=== PATIENT | female | born 1995 | race Caucasian/White ===

== ENCOUNTER 2025-02-04 15:20 | Outpatient (OUT) | payer OTHER, SELFPAY ==
--- OUTSIDE RECORDS SUMMARY | 2023-08-16 03:45 | XMS_ITS ---
Author Organization [facility] vices Address [address] [facility] [address] Care Team Providers Care Concrete Laborer Name Role Phone Yoana Berry Unavailable [phone] Daisy Keller Unavailable [phone] REASON FOR VISIT HEP B #3 Social History Sex Assigned At : Social History Observation Description Sex Assigned At Female Encounters Encounter Location Date Provider Diagnosis Main [address] [place] [id number] 08/16/2023 Daisy Keller Plan Of Treatment No Information Progress Notes * Judith REEDERDOB:1995 (29 yo F)Acc No.[id number]:08/16/2023 Nurse Visit Note Patient: Judith Buchanan :?Daisy Keller MDDOB:1995???Age:27 Y???Sex: FemaleDate:4Phone:[phone]:[address] [facility], [place] Subjective: * Chief Complaints: * H EP B #3 * Electronic signature of Daisy Keller MD on 02/04/2025 at 03:29 PM ESTSign off status: Pending * Provider: Carmen Keller MD Date: 0 08/16/2023 Generated for Printing/Faxing/eTransmitting on:?02/04/2025 03:29 PM EST
--- OUTSIDE RECORDS SUMMARY | 2023-08-16 03:45 | XMS_ITS ---
Author Organization [facility] vices Address [address], [place] [address] Care Team Providers Care Outside Sales Representative Name Role Phone Yoana Berry Unavailable [phone] Daisy Keller Unavailable [phone] REASON FOR VISIT anxiety, wt loss and #3 HEP B Medications Medication SIG (Take, Route, Frequency, Duration) Notes Start Date End Date Status hydrOXYzine Pamoate 25 MG Capsule 1 caps ule if needed Orally twice a day; Duration: 15 days 07/24/2023ctivebusPIRone HCl 5 MG Tablet 1 tablet Orally Twice a day; Duration: 30 days Take upon awakening and at 5-6 PM 03/15/2023Not-Taking/PRNLexapro 5 MG Tablet1 tablet Orally Once a day; Duration: 30 day(s)08/09/2023ctiveBlood Pressure Kit - Kitas directed; Duration: 90 days 11/06/2022Not-Taking/PRNIron 325 (65 Fe) MG Tablet1 tablet Orally once a day; Duration: 30 days02/01/2023Not-Taking/PRNARIPiprazole 5 MG Tablet1 tablet Orally bed time; Duration: 30 days03/15/2023Not-Taking/PRN Immunizations Vaccine Route Administration Date Status Comme nts *Hep B, adult dosage-Private Unknown 08/16/2023 Pending Social History Sex Assigned At : Social History Observation Description Sex Assigned At Female Encounters Encounter Location Date Provider Diagnosis Main [address] [place] [id number] 08/16/2023 Daisy Keller Encounter for immuni zation Z23 Assessments Encounter Date Diagnosis (ICD Code) Assessment Notes Treatment Notes Treatment Clinical Notes Section Notes 08/16/2023 Encounter for immunization (ICD- 10 - Z23) Hep B #3 today. Plan Of Treatment Treatment Notes Assessment Notes Encounter for immunization Hep B #3 toda y. Progress Notes * Judith REEDERDOB:1995 (29 yo F)Acc No.[id number]:08/16/2023 Medical Note Patient: Judith Buchanan :?Daisy Keller MDDOB:1995???Age:27 Y???Sex: FemaleDate:08/16/2023hone:[phone]:[address] [facility] Subjective: * Chief Complaints: * a nxiety, wt loss and #3 HEP B * Medications: T akinghydrOXYzine Pamoate 25 MG Capsule 1 capsule if needed Orally twice a day Lexapro 5 MG Tablet 1 tablet Orally Once a day Taking hydrOXYzine Pamoate 25 MG Capsule 1 capsule if needed Orally twice a day Taking Lexapro 5 MG Tablet 1 tablet Orally Once a day Not-Taking/PRNARIPiprazole 5 MG Tablet 1 tablet Orally bed time busPIRone HCl 5 MG Tablet 1 tablet Orally Twice a day Take upon awakening and at 5-6 PMIron 325 (65 Fe) MG Tablet 1 tablet Orally once a day Blood Pressure Kit - Kit as directed Not-Taking/PRN ARIPiprazole 5 MG Tablet 1 tablet Orally bed time Not-Taking/PRN busPIRone HCl 5 MG Tablet 1 tablet Orally Twice a day Take upon awakening and at 5-6 PMNot-Taking/PRN Iron 325 (65 Fe) MG Tablet 1 tablet Orally once a day Not- Taking/PRN Blood Pressure Kit - Kit as directed Assessment: * Assessment: 1.?Encounter for immunization - Z23??? Plan: * Treatment: Notes: Hep B #3 today.?? * Immunizations: *Hep B, adult dosage-Private : 1 mL (Pending) (Encounter for immunization) Billing Information: * Procedure Codes: * Electronic signature of Daisy Keller MD on 02/04/2025 at 03:29 PM ESTSign off status: Pending * Provider: Carmen Keller MD Date: 0 08/16/2023 Generated for Printing/Faxing/eTransmitting on:?02/04/2025 03:29 PM EST
--- OUTSIDE RECORDS SUMMARY | 2023-12-20 06:00 | XMS_ITS ---
Author Organization [facility] vices Address [address] [place], [place] [address] Care Team Providers Care Vegetable I Farmworker Name Role Phone Yoana Berry Unavailable [phone] Ann Escobar Unavailable [phone] REASON FOR VISIT Thyroid Check, Nausea Social History Sex Assigned At : Social History Observation Description Sex Assigned At Female Encounters Encounter Location Date Provider Diagnosis Main [address] [place], [place] [id number] 12/20/2023 Ann Escobar Plan Of Treatment No Information Progress Notes * Judith REEDERDOB:1995 (29 yo F)Acc No.[id number]:12/20/2023 Medical Note Patient: Judith Buchanan :?Ann EscobarDOB:1995???Age:28 Y???Sex:Female Date:12/20/2023hone:[phone]:[address] [place], [place] Subjective: * Chief Complaints: * T hyroid Check, Nausea * Electronic signature of LEESA Rutledge on 02/04/2025 at 01:46 PM ESTSign off status: Pending * Provider: Samantha Escobar Date: Generated for Printing/Faxing/eTransmitting on:?02/04/2025 01:46 PM EST
--- OUTSIDE RECORDS SUMMARY | 2023-12-24 13:15 | XMS_ITS ---
Author Organization [facility] vices Address [address] [place], [place] [address] Care Team Providers Care Registered Physical Therapist Name Role Phone Yoana Berry Unavailable [phone] Ann Escobar Unavailable [phone] REASON FOR VISIT F/U Knot on Arm Social History Sex Assigned At : Social History Observation Description Sex Assigned At Female Encounters Encounter Location Date Provider Diagnosis [address] [id number] 12/23 Ann Escobar Plan Of Treatment No Information Progress Notes * Judith REEDERDOB:1995 (29 yo F)Acc No.[id number]:12/24/2023 Medical Note Patient: La lara Judith :?Ann EscobarDOB:1995???Age:28 Y???Sex:Female Date:12/24/2023hone:[phone]:[address] [place], [place] Subjective: * Chief Complaints: * F /U Knot on Arm Billing Information: * Procedure Codes: * Electronic signature of LEESA Rutledge on 02/04/2025 at 01:46 PM ESTSign off status: Pending * Provider: Samantha Escobar Date: 02/22/2023 Generated for Printing/Faxing/eTransmitting on:?02/04/2025 01:46 PM EST
--- OUTSIDE RECORDS SUMMARY | 2024-01-25 05:00 | XMS_ITS ---
Author Organization [facility] vices Address [address] [place], [place] [address] Care Team Providers Care Cosmetic Consultant Name Role Phone Yoana Berry Unavailable [phone] Ann Escobar Unavailable [phone] REASON FOR VISIT Thyroid Social History Sex Assigned At : Social History Observation Description Sex Assigned At Female Encounters Encounter Location Date Provider Diagnosis [address] [id number] 01/24 Ann Escobar Plan Of Treatment No Information Progress Notes * Judith REEDERDOB:1995 (29 yo F)Acc No.[id number]:01/25/2024 Medical Note Patient: Judith Buchanan :?Ann EscobarDOB:1995???Age:28 Y???Sex:Female Date:4Phone:[phone]:[address] [place], [place] Subjective: * Chief Complaints: * T hyroid Billing Information: * Procedure Codes: * Electronic signature of LEESA Rutledge on 02/04/2025 at 01:46 PM ESTSign off status: Pending * Provider: Samantha Escobar Date: 03/27/2023 Generated for Printing/Faxing/eTransmitting on:?02/04/2025 01:46 PM EST
--- OUTSIDE RECORDS SUMMARY | 2024-04-16 09:00 | XMS_ITS ---
Author Organization [facility] vices Address [address] [place], [place] [address] Care Team Providers Care Paint Roller Cover Machine Setter Name Role Phone Jamal Yoana Unavailable [phone] REASON FOR VISIT Anxiety- med refill, Thyroid Social History Sex Assigned At : Social History Observation Description Sex Assigned At Female Encounters Encounter Location Date Provider Diagnosis Main [address] [place], [place] [address] 04/16/2024 Yoana Berry Plan Of Treatment No Information Progress Notes * Judith REEDERDOB:1995 (29 yo F)Acc No.[id number]:04/16/2024 Patient:?Judith Reeder :?Yoana Berry, MDDOB:1995???Age:28 Y???Sex: FemaleDate:04/16/2024Phone:[phone]:[address] [place], [place] Subjective: * Chief Complaints: * A nxiety- med refill, Thyroid Billing Information: * Procedure Codes: * Electronic signature of Yoana Berry MD on 02/04/2025 at 01:46 PM ESTSign off status: Pending * Provider: Juan Berry MD Date: 0 04/16/2024 Generated for Printing/Faxing/eTransmitting on:?02/04/2025 01:46 PM EST
--- OUTSIDE RECORDS SUMMARY | 2025-02-04 14:00 | XMS_ITS | Encounter Summary ---
Author Organization [facility] Address [address] [place] [address] Care Team Providers Care Pedorthist Name Role Phone Unallocated, Noms Provider Primary Care Provi aden Reason for Visit * ReasonCommentsWell Women Visit Encounter Details DateTypeDepartmentCare Team (Latest Contact Info)Knpacrkajeu75/17/2025 2:00 PM ESTOffice Visit NATO HONG [address] [place] [place] [phone] Trinity Escoto PA [address] [place], [facility]11 Well woman exam with routine gynecological exam; PCOS (polycystic ovarian syndrome) Social History Tobacco UseTypesPacks/DayYears UsedDateSmoking Tobacco: NeverSmokeless Tobacco: NeverCommentsNoSex and Gender InformationValueDate RecordedSex Assigned at BirthNot on fileLegal JgnTnqsan47/07/2023 10:18 AM ESTGender IdentityNot on fileSexual OrientationNot on filedocumented as of this encounter Last Filed Vital Signs Vital SignReadingTime TakenCommentsBlood Aomoxnco549/7402/04/2025 2:41 PM EST Pulse--Temperature--Respiratory Rate--Oxygen Saturation--Inhaled Oxygen Concentration--Qqcdxe910 kg (337 lb 12.8 oz)02/04/2025 2:41 PM ESTHeight--Body Mass Index54.5212/26/2022 10:44 AM ESTdocumented in this encounter Progress Notes * FEDERICA De La Torre - 02/04/2025 2:00 PM EST Reason for Appointment: Patient ID: Judith Reeder is a 29 y.o. female who presents for Well Women Visit Patient presents today for Annual Exam. MEDICATIONS Current Outpatient Medications Medication Instructions levothyroxine (SYNTHROID, LEVOXYL) 50 mcg, Oral, Daily before breakfast ALLERGIES Allergies Allergen Reactions Ibuprofen Rash PROBLEMS Active Ambulatory Problems Diagnosis Date Noted No Active Ambulatory Problems Resolved Ambulatory Problems Diagnosis Date Noted No Resolved Ambulatory Problems Past Medical History: Diagnosis Date Jl's disease HISTORY PAST MEDICAL HISTORY SOCIAL HISTORY Past Medical History: Diagnosis Date Jl's disease Social History Tobacco Use Smoking status: Never Smokeless tobacco: Never Substance Use Topics Alcohol use: Not on file Drug use: Not on file FAMILY HISTORY No family history on file. SURGICAL HISTORY Past Surgical History: Procedure Laterality Date OTHER SURGICAL HISTORY cyst removed from behind ear WISDOM TOOTH EXTRACTION REVIEW OF SYSTEMS Review of Systems: Review of Systems Constitutional: Negative. HENT: Negative. Eyes: Negative. Respiratory: Negative. Cardiovascular: Negative. Gastrointestinal: Negative. Genitourinary: Negative. Musculoskeletal: Negative. Skin: Negative. Neurological: Negative. All other systems reviewed and are negative. Hematological: Negative. Endocrine: Negative. Allergic/Immunologic: Negative. OBJECTIVE Objective: Physical Exam Constitutional: Appearance: Normal appearance. She is well-developed. Genitourinary: Vulva normal. Cardiovascular: Rate and Rhythm: Normal rate and regular rhythm. Pulmonary: Effort: Pulmonary effort is normal. Breath sounds: Normal breath sounds. Abdominal: General: Bowel sounds are normal. There is no distension. Palpations: Abdomen is soft. Tenderness: There is no abdominal tenderness. There is no guarding or rebound. Musculoskeletal: General: No swelling. Normal range of motion. Right lower leg: No edema. Left lower leg: No edema. Neurological: Mental Status: She is alert and oriented to person, place, and time. Skin: General: Skin is warm and dry. Psychiatric: Mood and Affect: Mood normal. Behavior: Behavior normal. Vitals and nursing note reviewed. Exam conducted with a order processing specialist present. Vitals: Estimated body mass index is 54.52 kg/m?? as calculated from the following: Height as of 12/26/22: 5' 6 . Weight as of this encounter: 337 lb 12.8 oz. BP: 116/74 No LMP recorded. ASSESSMENT & PLAN ICD-10-CM 1. Well woman exam with routine gynecological exam Z01.419 Pap Smear 2. PCOS (polycystic ovarian syndrome) E28.2 hCG, quantitative, TSH T4, free CBC and differential Follicle stimulating hormone Luteinizing hormone Hemoglobin A1c DHEA-sulfate DHEA US Pelvis w/ TV DHEA Orders Placed This Encounter Procedures US Pelvis w/ TV hCG, quantitative, TSH T4, free CBC and differential Follicle stimulating hormone Luteinizing hormone Hemoglobin A1c DHEA-sulfate DHEA Annual Wellness Exam: Patient presents today for routine annual exam. Patient states she has no current complaints. Patients vitals were reviewed and within normal limits. Growth and development is noted to be appropriate for age. Menstrual history is noted to be irregular with no concerns reported. No mental health concerns was expressed. Pap Smear: Speculum was inserted into the vagina and pap was obtained without difficulty. No HPV testing was performed per age guideline. Patient was advised that pap results could take anywhere from 7 to 10 days to receive and our office will reach out to the patient with those once we have them. Patient canalso view results via Medversanthart. I reinforced importance of condom use for STI prevention. Patient declined cultures to be performed with today's visit. Breast Exam: Upon examination, clinical breast exam was noted to be normal. Patient was counseled on breast self-awareness, including the importance of knowing what is normal for her own breasts and promptly reporting any changes such as new lumps, skin dimpling, nipple discharge, or pain. Screening mammogram recommended annually beginning at age 40 or earlier if risk factors are present. Discussed signs and symptoms of breast cancer and when to seek medical attention. Answered all patient questions. Contraceptive Counseling (if applicable): Patient is currently using no control at this time as a form of contraceptive. Patient does not desire control at this time. Patient has history of pcos. She wants to conceive. We will order blood work and US. We discussed fertility and she would like to proceed with femara. Pt will obtain labs and us and follow up with Haydee Follow Up: Patient is to return to our office in one year for annual exam unless needed otherwise. Documented by FEDERICA De La Torre on behalf of: FEDERICA De La Torre documented in this encounter Plan of Treatment DateTypeDepartmentCare Team (Latest Contact Info)Jsglxoagtdl46/13/2026 1:00 PM ESTAncillary Procedure [facility] OBODILIAN [address] [place] [phone] 03/09/2025 2:50 PM ESTOffice Visit [facility] HONG [address] [place] [phone] Mendel Baltazar DO [address] [place], [place] [address] 02/23/2026 2:00 PM ESTProcedure Visit [facility] HONG [address] [place] [address] Trinity Escoto PA [address] [place], [place] [address] NameTypePriorityAssociated DiagnosesOrder SchedulePap SmearPathology and CytologyRoutine Well woman exam with routine gynecological exam Ordered: 02/04/2025hCG, quantitative, pregnancyLabRoutine PCOS (polycystic ovarian syndrome) Ordered: 02/04/2025TSHLabRoutine PCOS (polycystic ovarian syndrome) Ordered: 02/04/2025T4, freeLabRoutine PCOS (polycystic ovarian syndrome) Ordered: 02/04/2025BC and differentialLabRoutine PCOS (polycystic ovarian syndrome) Ordered: 02/04/2025Follicle stimulating hormoneLabRoutine PCOS (polycystic ovarian syndrome) Ordered: 02/04/2025Luteinizing hormoneLabRoutine PCOS (polycystic ovarian syndrome) Ordered: 02/04/2025Hemoglobin G3pIgjWmbxyrm PCOS (polycystic ovarian syndrome) Ordered: 02/04/2025DHEA-sulfateLabRoutine PCOS (polycystic ovarian syndrome) Ordered: 02/04/2025DHEALabRoutine PCOS (polycystic ovarian syndrome) Expected: 02/04/2025 (Approximate), Expires: 02/04/2026US Pelvis w/ TVImaging Routine PCOS (polycystic ovarian syndrome) Expected: 02/04/2025, Expires: 02/04/2026documented as of this encounter Visit Diagnoses Diagnosis Well woman exam with routine gynecological exam Routine gynecological examination PCOS (polycystic ovarian syndrome) Polycystic ovaries documented in this encounter Care Teams Team MemberRelationshipSpecialtyStart DateEnd Date Unallocated, Noms Provider, [address] [place] [address] PCP - Dwqtzux20/7/23documented as of this encounter
--- OUTSIDE RECORDS SUMMARY | 2025-02-04 15:29 | XMS_ITS | Encounter Summary ---
Author Organization [facility] Address [address] [place] [address] Care Team Providers Care Ammonia Operator Name Role Phone Unallocated, Noms Provider Primary Care Provi aden Encounter Details DateTypeDepartmentCare Team (Latest Contact Info)Jvhromqtpvd01/17/2025amboo flowsheet NATO HONG [address] [place] [address] [place] [address] Trinity Escoto PA [address] [facility] [address] [place], [facility]11 Social History Tobacco UseTypesPacks/DayYears UsedDateSmoking Tobacco: NeverSmokeless Tobacco: NeverCommentsNoSex and Gender InformationValueDate RecordedSex Assigned at BirthNot on fileLegal PlwQmwhrx26/07/2023 10:18 AM ESTGender IdentityNot on fileSexual OrientationNot on filedocumented as of this encounter Plan of Treatment DateTypeDepartcorewell health [facility] hospitalCare Team (Latest Contact Info)Okutnjrrtkx25/13/2026 1:00 PM ESTAncillary Procedure NATO HONG [address] [place] [address] [place] [address] 03/09/2025 2:50 PM ESTOffice Visit NATO HONG [address] [place] [address] [place] [address] Mendel Baltazar DO [address] [facility] [address] [place], [facility]11 02/23/2026 2:00 PM ESTProcedure Visit NATO HONG [address] [facility] [place] [phone] Trinity Escoto PA [address] [facility] [place] [address] documented as of this encounter Visit Diagnoses Not on filedocumented in this encounter Care Teams Team MemberRelationshipSpecialtyStart DateEnd Date Unallocated, Nomitz Lucero MD [address] [place] [address] PCP - Clzvodd67/7/23documented as of this encounter
--- OUTSIDE RECORDS SUMMARY | 2025-02-04 15:29 | XMS_ITS | Encounter Summary ---
Author Organization [facility] Address [address] [facility] [place] [address] Care Team Providers Care Apple Picking Supervisor Name Role Phone Unallocated, Noms Provider Primary Care Provi aden Encounter Details DateTypeDepartmentCare Team (Latest Contact Info)Dnmxdgtgbix57/16/2025Travel Social History Tobacco UseTypesPacks/DayYears UsedDateSmoking Tobacco: NeverSmokeless Tobacco: NeverCommentsNoSex and Gender InformationValueDate RecordedSex Assigned at BirthNot on fileLegal NsgEfyigv18/07/2023 10:18 AM ESTGender IdentityNot on fileSexual OrientationNot on filedocumented as of this encounter Plan of Treatment DateTypeDepartmentCare Team (Latest Contact Info)Rgbwmcmdgtz84/13/2026 1:00 PM ESTAncillary Procedure NATO HONG [address] [place] [address] [place] [address] 03/09/2025 2:50 PM ESTOffice Visit NATO HONG [address] [place] [address] [place] [address] Mendel Baltazar DO [address] [place], [place] [address] 02/23/2026 2:00 PM ESTProcedure Visit NATO HONG [address] [place] [address] [place] [address] Trinity Escoto PA [address] [place] [address] documented as of this encounter Visit Diagnoses Not on filedocumented in this encounter Care Teams Team MemberRelationshipSpecialtyStart DateEnd Date Unallocated, Noms Provider, [address] [place] [address] PCP - Nkkvuht52/7/23documented as of this encounter
--- OUTSIDE RECORDS SUMMARY | 2025-02-04 15:30 | XMS_ITS | Clinical Summary ---
Author Organization [facility] Address [address] [place] [address] Care Team Providers Care Music Educator Name Role Phone Unavailable Primary Care Provider Unavailabl e Social History Tobacco UseTypesPacks/DayYears UsedDateSmoking Tobacco: Never Assessed CommentsUnknownSex and Gender InformationValueDate RecordedSex Assigned at Not on fileLegal TzpMsongt68/20/2021 9:27 AM EDTGender IdentityNot on fileSexual OrientationNot on file Plan of Treatment Not on file Medical Devices Not on file
--- OUTSIDE RECORDS SUMMARY | 2025-02-04 15:30 | XMS_ITS | Clinical Summary ---
Author Organization [facility] Address [address] [place] [address] Care Team Providers Care Analog Ic Design Engineer Name Role Phone Unallocated, Noms Provider Primary Care Provi aden Allergies Active AllergyReactionsCriticalityNoted KdecUadsknpeYtwqnncboBwwdKcz03/01/2021 Medications MedicationSigDispense QuantityRefillsLast FilledStart DateEnd DateStatus levothyroxine (Synthroid, Levoxyl) 50 MCG tablet Take 50 mcg by mouth in the morning. Take before meals.Active Encounters DateTypeDepartmentCare SbthOrmizoqyxix75/17/2025 2:00 PM ESTOffice Visit [facility]if H[facility] [address] [place] [address] Trinity Escoto PA Well woman exam with routine gynecological exam; PCOS (polycystic ovarian syndrome)02/04/2025amboo flowsheet NOMSudheer HONG [address] [place] [address] Trinity Escoto PA 02/03/2025Travelfrom Last 3 Months Social History Tobacco UseTypesPacks/DayYears UsedDateSmoking Tobacco: NeverSmokeless Tobacco: Never Tobacco Cessation:Counseling Given: Not Answered CommentsNoSex and Gender InformationValueDate RecordedSex Assigned at BirthNot on fileLegal BabZadazv91/07/2023 10:18 AM ESTGender IdentityNot on file Sexual OrientationNot on file Last Filed Vital Signs Vital SignReadingTime TakenCommentsBlood Kdiejunm424/7412 2:41 PM EST Qsujm4825/02/2024 10:02 AM JBYAdwonnrhksq46.1 ??C (98.7 ??F)08/19/2024 10:02 AM EDTRespiratory Nnns123408/19/2024 10:02 AM EDTOxygen Gejagjqyov25%08/19/2024 10:02 AM EDTInhaled Oxygen Concentration--Icsomx167 kg (337 lb 12.8 oz)02/04/2025 2:41 PM VSRJbciva511.6 cm (5' 6 )12/26/2022 10:44 AM ESTBody Mass Index54.52 12/26/2022 10:44 AM EST Plan of Treatment DateTypeDepartmentCare Team (Latest Contact Info)Krmuemoinwi64/13/2026 1:00 PM ESTAncillary Procedure [facility] [address] [facility] [place] [phone] 03/09/2025 2:50 PM ESTOffice Visit NOMSudheer HONG [address] [place] [address] [place] [address] Mendel Baltazar DO [address] [facility] [address] [place], [place] [id number] 02/23/2026 2:00 PM ESTProcedure Visit [facility] [address] [facility] [place] [address] Trinity Escoto PA [address] [facility] [place] [address] Health MaintenanceDue DateLast DoneCommentsCOVID-19 Vaccine ( season) /09/2020, 10/11/2020Influenza PdasdqjXrsqtufgz44/21/2025, 12/15/2023 Pneumococcal Vaccine: Pediatrics (0 to 5 Years) and At-Risk Patients (6 to 64 Years)Aged OutNo longer eligible based on patient's age to complete this topic Insurance Care Teams Team MemberRelationshipSpecialtyStart DateEnd Date Unallocated, Noms Nic, [address] [place] [address] PCP - Xhfcxht43/7/23
--- OUTSIDE RECORDS SUMMARY | 2025-02-04 15:30 | XMS_ITS | Clinical Summary ---
Author Organization [facility] tem Address [id number] [address] [place] [address] Care Team Providers Care Sieve Grader Tender Name Role Phone Daisy Keller MD Primary Care Provider [phone] Social History Tobacco UseTypesPacks/DayYears UsedDateSmoking Tobacco: Never Assessed CommentsUnknownSex and Gender InformationValueDate RecordedSex Assigned at Not on fileLegal QvtCqdhhe27/01/2022 11:53 AM EDTGender IdentityNot on file Sexual OrientationNot on file Plan of Treatment Health MaintenanceDue DateLast DoneCommentsDepression Exatnjzrt80/30/2010Tobacco Txrruolis65/30/2010dult BMI Wtojdrvkh26/30/2016DTaP,Tdap and Td Vaccines (1 - Tdap)2016Pap Smear2018COVID-19 Vaccine ( season) /09/2020, 10/11/2020Influenza Adwbyis3410/20/2024 Medical Devices Not on file Care Teams Team MemberRelationshipSpecialtyStart DateEnd Date Daisy Keller MD [address] [place], [place] [id number] PCP - GeneralFamily Medicine05/11/23
[2025-02-04 16:07] LABS: Hematocrit 38.1 % (36.0-48.0); Hemoglobin 11.8 g/dL (12.0-16.0); Immature Granulocytes Abs Auto 0.02 10^3/uL (0.00-0.03); Immature Granulocytes Pct Auto 0.2 % (0.0-0.5); Lymphocytes Absolute Auto 2.2 10^3/uL (1.2-3.8); Mean Corpuscular HGB Conc 31.0 g/dL (29.9-35.2); Mean Corpuscular Hemoglobin 24.6 pg (26.7-34.0); Mean Corpuscular Volume 79.5 fL (81.0-99.0); Platelet Count 282 10^3/uL (150-450); Red Blood Count 4.79 10^6/uL (4.20-5.40); White Blood Count 10.0 10^3/uL (4.0-11.0)
[2025-02-04 16:26] LABS: Thyroid Stimulating Hormone 3.752 uIU/mL (0.358-3.740)
[2025-02-06 04:10] LABS: FSH 5.1 mIU/mL (.)
== END 2025-02-04 15:21 | disposition home or self-care (01) ==
LOC: LAB 15:26
PROVIDERS: PCP Family Medicine; Visit Provider Physician Assistant
DX: E28.2 Polycystic ovarian syndrome (principal)
CPT/HCPCS: 36415; 82626; 82627; 83001; 83002; 83036; 84439; 84443; 84702; 85025; 88175

== ENCOUNTER 2025-02-04 20:46 | Outpatient (REF) | payer OTHER, SELFPAY ==
--- OUTSIDE RECORDS SUMMARY | 2025-02-04 14:00 | XMS_ITS | Encounter Summary ---
Author Organization [facility] Address [address] [place] [address] Care Team Providers Care Vice President Marketing & Development Name Role Phone Unallocated, Noms Provider Primary Care Provi aden Reason for Visit * ReasonCommentsWell Women Visit Encounter Details DateTypeDepartmentCare Team (Latest Contact Info)Olrhncfnhwt14/17/2025 2:00 PM ESTOffice Visit NATO HONG [address] [place] [phone] Trinity Escoto PA [address] [place], [facility]11 Well woman exam with routine gynecological exam; PCOS (polycystic ovarian syndrome) Social History Tobacco UseTypesPacks/DayYears UsedDateSmoking Tobacco: NeverSmokeless Tobacco: NeverCommentsNoSex and Gender InformationValueDate RecordedSex Assigned at BirthNot on fileLegal SsnHgthdy27/07/2023 10:18 AM ESTGender IdentityNot on fileSexual OrientationNot on filedocumented as of this encounter Last Filed Vital Signs Vital SignReadingTime TakenCommentsBlood Phtgjheq021/7402/04/2025 2:41 PM EST Pulse--Temperature--Respiratory Rate--Oxygen Saturation--Inhaled Oxygen Concentration--Vzcgap553 kg (337 lb 12.8 oz)02/04/2025 2:41 PM [...] nursing note reviewed. Exam conducted with a multi sensor operator present. Vitals: Estimated body mass index is [...] have them. Patient canalso view results via Pickatalehart. I reinforced importance of condom use for [...] Plan of Treatment DateTypeDepartmentCare Team (Latest Contact Info)Mrtxyatpbdw16/13/2026 1:00 PM ESTAncillary Procedure [facility]if OBODILIAN [address] [place] [phone] 03/09/2025 2:50 PM ESTOffice Visit [facility] HONG [address] [place] [phone] Mendel Baltazar DO [address] [place] [place], [place] [address] 02/23/2026 2:00 PM ESTProcedure Visit [facility] HONG [address] [place] [address] Trinity Escoto PA [address] [place], [place] [address] NameTypePriorityAssociated DiagnosesOrder SchedulePap SmearPathology and CytologyRoutine Well woman exam with routine gynecological exam Ordered: 02/04/2025hCG, quantitative, pregnancyLabRoutine PCOS (polycystic ovarian syndrome) Ordered: 02/04/2025TSHLabRoutine PCOS (polycystic ovarian syndrome) Ordered: 02/04/2025T4, freeLabRoutine PCOS (polycystic ovarian syndrome) Ordered: 02/04/2025BC and differentialLabRoutine PCOS (polycystic ovarian syndrome) Ordered: 02/04/2025Follicle stimulating hormoneLabRoutine PCOS (polycystic ovarian syndrome) Ordered: 02/04/2025Luteinizing hormoneLabRoutine PCOS (polycystic ovarian syndrome) Ordered: 02/04/2025Hemoglobin A2eGtuMzdjefj PCOS (polycystic ovarian syndrome) Ordered: 02/04/2025DHEA-sulfateLabRoutine PCOS [...] DateEnd Date Unallocated, Noms Provider, [address] [place] [address] PCP - Chpfmpt24/7/23documented as of this encounter
--- OUTSIDE RECORDS SUMMARY | 2025-02-04 20:51 | XMS_ITS | Clinical Summary ---
Author Organization [facility] Address [address] [place] [address] Care Team Providers Care Fish Seiner Name Role Phone Unallocated, Noms Provider Primary Care Provi aden Allergies Active AllergyReactionsCriticalityNoted GyllXdmzqvzuFoaikyxtbLiwiBau68/01/2021 Medications MedicationSigDispense QuantityRefillsLast FilledStart DateEnd DateStatus levothyroxine (Synthroid, Levoxyl) 50 MCG tablet Take 50 mcg by mouth in the morning. Take before meals.Active Encounters DateTypeDepartmentCare UvchQcbhjbzpake76/17/2025 2:00 PM ESTOffice Visit [facility] [address] [place] [address] Trinity Escoto PA Well woman exam with routine gynecological exam; PCOS (polycystic ovarian syndrome)02/04/2025linisync Result Encounter [facility] External Department Unsolicited Trinity Escoto PA 02/04/2025amboo flowsheet NOMSudheer [facility]ONG [address] [place] [address] Trinity Escoto PA 02/03/2025Travelfrom Last 3 Months Social History Tobacco UseTypesPacks/DayYears UsedDateSmoking Tobacco: NeverSmokeless Tobacco: Never Tobacco Cessation:Counseling Given: Not Answered CommentsNoSex and Gender InformationValueDate RecordedSex Assigned at BirthNot on fileLegal DztLtlpjx88/07/2023 10:18 AM ESTGender IdentityNot on file Sexual OrientationNot on file Last Filed Vital Signs Vital SignReadingTime TakenCommentsBlood Hzlpjhbn015/7412/ 2:41 PM EST Xntai155308/19/2024 10:02 AM CDQZoerjrhqmex83.1 ??C (98.7 ??F)08/19/2024 10:02 AM EDTRespiratory Jhca259708/19/2024 10:02 AM EDTOxygen Xoclimpnpz74%08/19/2024 10:02 AM EDTInhaled Oxygen Concentration--Novdun277 kg (337 lb 12.8 oz)02/04/2025 2:41 PM CPWAanvez092.6 cm (5' 6 )12/26/2022 10:44 AM ESTBody Mass Index54.52 12/26/2022 10:44 AM EST Plan of Treatment DateTypeDepartmentCare Team (Latest Contact Info)Huusgawrrtn38/13/2026 1:00 PM ESTAncillary Procedure [facility] Asif [facility] [address] [place] [address] [place] [phone] 03/09/2025 2:50 PM ESTOffice Visit NOMSudheer HONG [address] [place] [address] [place] [phone] Mendel Baltazar DO [address] [facility] [address] [place] [place], [place] [phone] 02/23/2026 2:00 PM ESTProcedure Visit NOMSudheer HONG [address] [place] [address] [place] [address] Trinity Escoto PA [address] [facility] [address] [place], [place] [phone] Health MaintenanceDue DateLast DoneCommentsCOVID-19 Vaccine (2024- season) /09/2020, 10/11/2020Influenza LxaqrzhBregkjicq51/21/2025, 12/15/2023 Pneumococcal Vaccine: Pediatrics (0 to 5 Years) and At-Risk Patients (6 to 64 Years)Aged OutNo longer eligible based on patient's age to complete this topic Procedures Procedure NamePriorityDate/TimeAssociated DiagnosisCommentsALL THYROXINE (T4) LEPURihxvot46/17/2025 3:42 PM EST MLR HEMOGLOBIN Y5YGmelyee59/17/2025 3:42 PM EST TBH PREG QUANT NXNUpuiqmu62/17/2025 3:42 PM EST ALL THYROID STIM VZABAZGUiobatz01/17/2025 3:42 PM EST ALL CBC WITH AUTO HCBHZxtvtvj97/17/2025 3:42 PM EST from Last 3 Months Results * TBH PREG QUANT HCG (02/04/2025 3:42 PM EST)ComponentValueRef RangeTest Method Analysis TimePerformed AtPathologist SignatureHCG QUANTITATIVE<1mIU/mLTBH Comment: 5-50 ? 0.2-1 WEEK 50-500 ? 1-2 WEEKS 100-5,000 ?2-3 WEEKS 500-10,000 ? 3-4 WEEKS 1,000-50,000 ?? 4-5 WEEKS 10,000-100,000 5-6 WEEKS 15,000-200,000 6-8 WEEKS 10,000-100,000 2-3 MONTHS Specimen (Source)Anatomical Location / LateralityCollection Method / Volume Collection TimeReceived Time02/04/2025 3:42 PM EST02/04/2025 3:56 PM EST Narrative CLINISYNC - 02/04/2025 4:30 PM EST Authorizing ProviderResult TypeResult StatusAmy Tigist PACLINISYNCFinal Result Performing OrganizationAddressCity/State/ZIP CodePhone Number CLINISYNC TB * MLR HEMOGLOBIN A1C (02/04/2025 3:42 PM EST)ComponentValueRef RangeTest Method Analysis TimePerformed AtPathologist SignatureGLYCOHEMOGLOBIN A1C5.44.5 - 6.2 %TBHComment: ADA RECOMMENDED LIMIT 4.0 - 6.0 ADA THERAPEUTIC TARGET < 7.0 ACTION SUGGESTED > 7.0 ESTIMATED AVERAGE ZWFWLRV154av/dLTBHSpecimen (Source)Anatomical Location / LateralityCollection Method / VolumeCollection TimeReceived Time02/04/2025 3:42 PM EST02/04/2025 3:56 PM EST Narrative CLINISYNC - 02/04/2025 4:53 PM EST Authorizing ProviderResult TypeResult StatusAmy Tigist BOYLEINISYNCFinal Result Performing OrganizationAddressCity/State/ZIP CodePhone Number [facility] TB * ALL THYROXINE (T4) FREE (02/04/2025 3:42 PM EST)ComponentValueRef RangeTest MethodAnalysis TimePerformed AtPathologist SignatureFREE T41.380.76 - 1.46 ng/dLTBHSpecimen (Source)Anatomical Location / LateralityCollection Method / VolumeCollection TimeReceived Time02/04/2025 3:42 PM EST02/04/2025 3:56 PM EST Narrative CLINISYNC - 02/04/2025 6:05 PM EST Authorizing ProviderResult TypeResult StatusAmy Tigist PACLINISYNCFinal Result Performing OrganizationAddressCity/State/ZIP CodePhone Number [facility] * (ABNORMAL) ALL THYROID STIM HORMONE (02/04/2025 3:42 PM EST)ComponentValueRef RangeTest MethodAnalysis TimePerformed AtPathologist SignatureTHYROID STIMULATING HORMONE3.752(H)0.358 - 3.740 uIU/mLTBHSpecimen (Source)Anatomical Location / LateralityCollection Method / VolumeCollection TimeReceived Time 02/04/2025 3:42 PM EST02/04/2025 3:56 PM EST Narrative CLINISYNC - 02/04/2025 4:30 PM EST Authorizing ProviderResult TypeResult StatusAmy Tigist PACLINISYNCFinal Result Performing OrganizationAddressCity/State/ZIP CodePhone Number [facility]NC TB * (ABNORMAL) ALL CBC WITH AUTO DIFF (02/04/2025 3:42 PM EST)ComponentValueRef RangeTest MethodAnalysis TimePerformed AtPathologist SignatureTBH WBC10.04.0 - 11.0 10 3/uLTBHTBH RBC4.794.20 - 5.40 10 6/uLTBHTBH HGB11.8(L)12.0 - 16.0 g/dL TBHTBH HCT38.136.0 - 48.0 %TBHTBH MCV79.5(L)81.0 - 99.0 fLTBHTBH MCH24.6(L) 26.7 - 34.0 pgTBHTBH MCHC31.029.9 - 35.2 g/dLTBHTBH RDW14.611.0 - 15.0 %TBHTBH SGS206604 - 450 10 3/uLTBHTBH MPV11.99.5 - 13.5 fLTBHNEUTROPHILS PERCENT AUTO 71.043.0 - 75.0 %TBHLYMPHOCYTES PERCENT AUTO22.120.5 - 60.0 %TBHMONOCYTES PERCENT AUTO4.51.7 - 12.0 %TBHTBH EO %1.90.9 - 7.0 %TBHBASOPHILS PERCENT AUTO 0.30.2 - 2.0 %TBHIMMATURE GRANULOCYTES PCT AUTO0.20.0 - 0.5 %TBHNEUTROPHILS ABSOLUTE AUTO7.1(H)1.4 - 6.5 10 3/uLTBHLYMPHOCYTES ABSOLUTE AUTO2.21.2 - 3.8 10 3/uLTBHMONOCYTES ABSOLUTE AUTO0.50.3 - 0.8 10 3/uLTBHTBH EO #0.20.0 - 0.7 10 3/uLTBHBASOPHILS ABSOLUTE AUTO0.00.0 - 0.1 10 3/uLTBHIMMATURE GRANULOCYTES ABS AUTO0.020.00 - 0.03 10 3/uLTBHSpecimen (Source)Anatomical Location / LateralityCollection Method / VolumeCollection TimeReceived Time02/04/2025 3:42 PM EST02/04/2025 3:56 PM EST Narrative CLINISYNC - 02/04/2025 4:14 PM EST Authorizing ProviderResult TypeResult StatusAmy Forsyth PACLINISYNCFinal Result Performing OrganizationAddressCity/State/ZIP CodePhone Number [facility] from Last 3 Months Insurance Care Teams Team MemberRelationshipSpecialtyStart DateEnd Date Unallocated, Noms MD Nic [address] [place], [place] [phone] PCP - Ghqpzaf61/7/23
--- OUTSIDE RECORDS SUMMARY | 2025-02-04 20:51 | XMS_ITS | Encounter Summary ---
Author Organization [facility] Address [address] [place] [facility] [place] [address] Care Team Providers Care Grain Ii Farmworker Name Role Phone Unallocated, Noms Provider Primary Care Provi aden Encounter Details DateTypeDepartmentCare Team (Latest Contact Info)Alzcmypumjb79/16/2025Travel Social History Tobacco UseTypesPacks/DayYears UsedDateSmoking Tobacco: NeverSmokeless Tobacco: NeverCommentsNoSex and Gender InformationValueDate RecordedSex Assigned at BirthNot on fileLegal OzjDbkplv01/07/2023 10:18 AM ESTGender IdentityNot on fileSexual OrientationNot on filedocumented as of this encounter Plan of Treatment DateTypeDepartmentCare Team (Latest Contact Info)Rspuncsqise34/13/2026 1:00 PM ESTAncillary Procedure NATO HONG [address] [place] [address] [place] [address] 03/09/2025 2:50 PM ESTOffice Visit NATO HONG [address] [place] [address] [place] [address] Mendel Baltazar DO [address] [facility] [address] [place], [place] [address] 02/23/2026 2:00 PM ESTProcedure Visit NATO HONG [address] [place] [address] [place] [address] Trinity Escoto PA [address] [facility] [place] [address] documented as of this encounter Visit Diagnoses Not on filedocumented in this encounter Care Teams Team MemberRelationshipSpecialtyStart DateEnd Date Unallocated, Noms Provider, [address] [place] [address] PCP - Bptuscl51/7/23documented as of this encounter
--- OUTSIDE RECORDS SUMMARY | 2025-02-04 20:51 | XMS_ITS | Clinical Summary ---
Author Organization [facility] [employer] [facility] lin Address [address] [place] [address] Care Team Providers Care Core Cleaner Name Role Phone Unavailable Primary Care Provider Unavailabl e Social History Tobacco UseTypesPacks/DayYears UsedDateSmoking Tobacco: Never Assessed CommentsUnknownSex and Gender InformationValueDate RecordedSex Assigned at Not on fileLegal EjjTztcnb70/20/2021 9:27 AM EDTGender IdentityNot on fileSexual OrientationNot on file Plan of Treatment Not on file Medical Devices Not on file
--- OUTSIDE RECORDS SUMMARY | 2025-02-04 20:51 | XMS_ITS | Encounter Summary ---
Author Organization [facility] Address [address] [place] [address] Care Team Providers Care Jacquard Loom Weaver Name Role Phone Unallocated, Noms Provider Primary Care Provi aden Encounter Details DateTypeDepartmentCare Team (Latest Contact Info)Cqvldghwytk88/17/2025amboo flowsheet NATO [facility]ONG [address] [place] [address] [place] [address] Trinity Escoto PA [address] [facility] [address] [place], [facility] Social History Tobacco UseTypesPacks/DayYears UsedDateSmoking Tobacco: NeverSmokeless Tobacco: NeverCommentsNoSex and Gender InformationValueDate RecordedSex Assigned at BirthNot on fileLegal CydCbxxml02/07/2023 10:18 AM ESTGender IdentityNot on fileSexual OrientationNot on filedocumented as of this encounter Plan of Treatment DateTypeDepartuniversity of michigan healthCare Team (Latest Contact Info)Utgzbntfrfi70/13/2026 1:00 PM ESTAncillary Procedure NATO HONG [address] [place] [address] [place] [address] 03/09/2025 2:50 PM ESTOffice Visit NATO HONG [address] [place] [address] [place] [address] Mendel Baltazar DO [address] [facility] [address] [place], [facility] 02/23/2026 2:00 PM ESTProcedure Visit NATO HONG [address] [facility] [phone] Trinity Escoto PA [address] [facility] [place] [address] documented as of this encounter Visit Diagnoses Not on filedocumented in this encounter Care Teams Team MemberRelationshipSpecialtyStart DateEnd Date Unallocated, Nomitz Lucero MD [address] [place] [address] PCP - Tmgqtgv18/7/23documented as of this encounter
--- OUTSIDE RECORDS SUMMARY | 2025-02-04 20:52 | XMS_ITS | Encounter Summary ---
Author Organization [facility] Address [address] [place] [address] Care Team Providers Care Nurse Recruiter Name Role Phone Unallocated, Noms Provider Primary Care Provi aden Encounter Details DateTypeDepartmentCare Team (Latest Contact Info)Guialbljjok59/17/2025linisync Result Encounter NOMS External Department Unsolicited Trinity Escoto PA [address] [facility] [address] [place], [place] [phone] Social History Tobacco UseTypesPacks/DayYears UsedDateSmoking Tobacco: NeverSmokeless Tobacco: NeverCommentsNoSex and Gender InformationValueDate RecordedSex Assigned at BirthNot on fileLegal OpaTqwgez98/07/2023 10:18 AM ESTGender IdentityNot on fileSexual OrientationNot on filedocumented as of this encounter Plan of Treatment DateTypeDepartmentCare Team (Latest Contact Info)Tpclfnghzum90/13/2026 1:00 PM ESTAncillary Procedure NATO HONG [address] [place] [address] [place] [phone] 03/09/2025 2:50 PM ESTOffice Visit NOMSudheer HONG [address] [place] [address] [place] [address] Mendel Baltazar DO [address] [facility] [address] [place] [place], [place] [phone] 02/23/2026 2:00 PM ESTProcedure Visit NOMSudheer HONG [address] [place] [address] [place] [phone] Trinity Escoto PA [address] [place] [address] [address] [place], [place] [phone] documented as of this encounter Procedures Procedure NamePriorityDate/TimeAssociated DiagnosisCommentsTBH PREG QUANT HCG Ryzdnjy1802/04/2025 3:42 PM EST MLR HEMOGLOBIN J2YHpxgups76/17/2025 3:42 PM EST ALL THYROXINE (T4) QNYXTahleku47/17/2025 3:42 PM EST ALL THYROID STIM KKNZNSSNfpkooq21/17/2025 3:42 PM EST ALL CBC WITH AUTO FSGOXzeurpu72/17/2025 3:42 PM EST documented in this encounter Results * ALL THYROXINE (T4) FREE (02/04/2025 3:42 [...] 7.0 ACTION SUGGESTED > 7.0 ESTIMATED AVERAGE GDNPKQA673az/dLTBHSpecimen (Source)Anatomical Location / LateralityCollection Method / VolumeCollection TimeReceived Time02/04/2025 3:42 PM EST02/04/2025 3:56 PM EST Narrative CLINISYNC - 02/04/2025 4:53 PM EST Authorizing ProviderResult TypeResult StatusAmy Tigist PACLINISYNCFinal Result Performing OrganizationAddressCity/State/ZIP CodePhone Number [facility] * TBH PREG QUANT HCG (02/04/2025 3:42 [...] Tigist PACLINISYNCFinal Result Performing OrganizationAddressCity/State/ZIP CodePhone Number [facility] * (ABNORMAL) ALL THYROID STIM HORMONE (02/04/2025 3:42 PM EST)ComponentValueRef RangeTest MethodAnalysis TimePerformed AtPathologist SignatureTHYROID STIMULATING HORMONE3.752(H)0.358 - 3.740 uIU/mLTBHSpecimen (Source)Anatomical Location / LateralityCollection Method / VolumeCollection TimeReceived Time 02/04/2025 3:42 PM EST02/04/2025 3:56 PM EST Narrative CLINISYNC - 02/04/2025 4:30 PM EST Authorizing ProviderResult TypeResult StatusAmy Tigist PACLINISYNCFinal Result Performing OrganizationAddressCity/State/ZIP CodePhone Number [facility] * (ABNORMAL) ALL CBC WITH AUTO DIFF (02/04/2025 3:42 PM EST)ComponentValueRef RangeTest MethodAnalysis TimePerformed AtPathologist SignatureTBH WBC10.04.0 - 11.0 10 3/uLTBHTBH RBC4.794.20 - 5.40 10 6/uLTBHTBH HGB11.8(L)12.0 - 16.0 g/dL TBHTBH HCT38.136.0 - 48.0 %TBHT MCV79.5(L)81.0 - 99.0 fLTBHTBH MCH24.6(L) 26.7 - 34.0 pgTBHTBH MCHC31.029.9 - 35.2 g/dLTBHTBH RDW14.611.0 - 15.0 %TBHTBH JLE160127 - 450 10 3/uLTBHTBH MPV11.99.5 - 13.5 [...] 4:14 PM EST Authorizing ProviderResult TypeResult StatusAmy [place] PACLINISYNCFinal Result Performing OrganizationAddressCity/State/ZIP CodePhone Number [facility] documented in this encounter Visit Diagnoses Not on filedocumented in this encounter Care Teams Team MemberRelationshipSpecialtyStart DateEnd Date Unallocated, Noms Provider, [address] [place] [address] PCP - Mzjzaap72/7/23documented as of this encounter
--- OUTSIDE RECORDS SUMMARY | 2025-02-04 20:52 | XMS_ITS | Clinical Summary ---
Author Organization [employer] [facility] tem Address [id number] [address] [place] [address] Care Team Providers Care Research Attorney Name Role Phone Daisy [place] MD Primary Care Provider Social History Tobacco UseTypesPacks/DayYears UsedDateSmoking Tobacco: Never Assessed CommentsUnknownSex and Gender InformationValueDate RecordedSex Assigned at Not on fileLegal WodXzwjlq32/01/2022 11:53 AM EDTGender IdentityNot on file Sexual OrientationNot on file Plan of Treatment Health MaintenanceDue DateLast DoneCommentsDepression Agoojktya35/30/2010Tobacco Xtyqbzzwc46/30/2010dult BMI Lbucckghx37/30/2016DTaP,Tdap and Td Vaccines (1 - Tdap)2016Pap Smear2018COVID-19 Vaccine ( season) /09/2020, 10/11/2020Influenza Rfcyskj1410/20/2024 Medical Devices Not on file Care Teams Team MemberRelationshipSpecialtyStart DateEnd Date Daisy Keller MD [address] [place], [place] [phone] PCP - GeneralFamily Medicine05/11/23
== END 2025-02-04 20:47 | disposition home or self-care (01) ==
LOC: LAB 20:46
PROVIDERS: PCP Family Medicine; Visit Provider Physician Assistant
DX: Z01.419 Encounter for gynecological examination (general) (routine) without abnormal findings (principal)